=== PATIENT | female | born 1965 ===

== ENCOUNTER 2021-07-21 08:48 | Emergency (ER) | payer BC, SELFPAY ==
[2021-07-21 08:58] VITALS: BP 167/93; PULSE 94; RESP 20; TEMP 36.5; O2SAT 97
--- NOTE | 2021-07-21 09:25 | ED.SKABFB ---
HPI - Skin/Abscess/Foreign Bdy General Chief complaint: Skin/Abscess/Foreign Body Stated complaint: Skin Sore Time Seen by Provider: 07/21/21 09:25 Source: patient and RN notes reviewed Mode of arrival: ambulatory Limitations: no limitations History of Present Illness HPI narrative: 55-year-old male presents with concern for sore on his left lower leg with surrounding redness and tenderness. Reports he noticed a sore about 2 days ago, started as a pimple which he picked at and then the area developed redness, tenderness, swelling. He denies general malaise, fever, bodies, chills, sweats. Denies drainage from the area. MD complaint: abscess/boil Related Data Home Medications Medication Instructions Recorded Confirmed aspirin 81 mg tablet,delayed 1 tablet PO DAILY 07/21/21 07/21/21 release atorvastatin 80 mg tablet 1 tablet PO DAILY 07/21/21 07/21/21 carvedilol 25 mg tablet 1 tablet PO BID 07/21/21 07/21/21 insulin glargine U-300 conc 300 30 unit subcut HS 07/21/21 07/21/21 unit/mL (1.5 mL) subcutaneous pen (Toujeo SoloStar U-300 Insulin) lisinopril 20 1 tablet PO BID 07/21/21 07/21/21 mg-hydrochlorothiazide 12.5 mg tablet metformin 1,000 mg tablet 1 tablet PO BID 07/21/21 07/21/21 potassium chloride 20 mEq 1 tablet PO DAILY 07/21/21 07/21/21 tablet,extended release(part/cryst) semaglutide 1 mg/dose (4 mg/3 mL) 1 mg subcut WEEKLY 07/21/21 07/21/21 subcutaneous pen injector (Ozempic) Allergies Allergy/AdvReac Type Severity Reaction Status Date / Time No Known Allergies Allergy Verified 07/21/21 09:17 Review of Systems Review of Systems: CONSTITUTIONAL: Denies malaise, chills, sweats, or fever. EYES: Denies redness, or discharge. ENT: Denies rhinorrhea, congestion, swollen lips, swollen tongue CARDIOVASCULAR: Denies chest pain, palpitations, or edema. RESPIRATORY: Denies cough or dyspnea. GASTROINTESTINAL: Denies abdominal pain, nausea, vomiting SKIN: Reports redness, warmth, swelling, tenderness, scab to the left lower leg MUSCULOSKELETAL: Denies joint painor myalgia. NEUROLOGIC: Denies headache. All systems reviewed & are unremarkable except as noted in HPI and below PMFSH Comments At time of signature, agree with nursing past medical, surgical, social and family history. There is no relevant family history pertinent to the presenting complaint Exam Narrative: GENERAL: Well-appearing, well-nourished, and in no acute distress. HEAD: Normocephalic, atraumatic. EYES: PERRLA, conjunctivae clear, and EOMI. ENT: Mucous membranes moist. Oropharynx without edema, erythema or lesions. NECK: Supple. No lymphadenopathy CHEST: Clear to auscultation. No respiratory distress. HEART: Regular rate and rhythm. SKIN: Warm, dry. Raised, warm, erythematous area with central scab noted to the left lower leg, see diagram NEURO: Alert and oriented x3. PSYCH: Normal mood and affect Extrem: Elbow/forearm/wrist images: 1. Approximately 6 cm x 4 cm raised area of induration, erythema, warmth with central scab. No fluctuation noted 2. Erythema and mild warmth without induration Course Course Emergency Course: Patient is aware of diagnosis, understands and agrees to treatment plan. Anticipatory guidance given. Patient agrees to follow-up as directed and is aware of reasons to seek care at the emergency department. Portions of this record may have been created with voice recognition software Level of Care: Express Care Visit Vital Signs Vital signs: Vital Signs Temperature 97.7 F 07/21/21 08:58 Pulse Rate 94 07/21/21 08:58 Respiratory Rate 20 07/21/21 08:58 Blood Pressure 167/93 H 07/21/21 08:58 Pulse Oximetry 97 07/21/21 08:58 Oxygen Delivery Room Air 07/21/21 08:58 Temperature 97.7 F 07/21/21 08:58 Pulse Rate 94 07/21/21 08:58 Respiratory Rate 20 07/21/21 08:58 Blood Pressure 167/93 H 07/21/21 08:58 Pulse Oximetry 97 07/21/21 08:58 Oxygen Delivery Room Air
== END 2021-07-21 09:35 | disposition home or self-care (01) ==
PROVIDERS: Emergency Provider Nurse Practitioner
DX: L03.116 Cellulitis of left lower limb (principal); E78.00 Pure hypercholesterolemia, unspecified; I10 Essential (primary) hypertension; E11.9 Type 2 diabetes mellitus without complications
CPT/HCPCS: 99213; G0463